=== PATIENT | male | born 1970 | race Caucasian/White ===

== ENCOUNTER 2021-05-28 08:33 | Emergency (ER) | payer SELFPAY ==
[~2021-05-28] VITALS: Ht 190.5 cm; Wt 136.1 kg
--- NOTE | 2021-05-28 08:50 | NUR ---
[id number], from a motel, c/o high blood pressure 160/100 on scene, BS 174, admits on drinking vodka this morning. On room air, breathing evenly and unlabored. Connected to the monitor and pulse ox. kept comfortable, will continue to monitor accordingly.
[2021-05-28] MEDS ORDERED: CHLO25CA10 PO (09:11)
[2021-05-28] MEDS ORDERED: LORAZEPAM 1 MG TABLET PO ONE (09:15)
[2021-05-28] MEDS ORDERED: LORAZEPAM 1 MG TABLET ONE (09:19)
[2021-05-28 09:26] VITALS: BP 124/77
--- NOTE | 2021-05-28 09:27 | NUR ---
Patient discharged to home in stable condition. Written and verbal after care instructions given. Patient verbalizes understanding of instruction.
[2021-05-28] MEDS ORDERED: LORAZEPAM INJ 2 MG/ML VIAL IM ONE (09:30)
== END 2021-05-28 09:27 | disposition home or self-care (01) ==
LOC: ER 08:51
DX: F10.139 Alcohol abuse with withdrawal, unspecified (principal); I10 Essential (primary) hypertension; Z88.5 Allergy status to narcotic agent; Z79.899 Other long term (current) drug therapy; Y90.9 Presence of alcohol in blood, level not specified